=== PATIENT | female | born 1935 | race Caucasian/White ===

== ENCOUNTER → 2017-09-04 | Outpatient (CLI) | payer MEDICARE, BC ==
[~2017-09-04] MED LIST: ASPIRIN EC81 MG PO; CARVEDILOL 25MG25 MG PO; CENTRUM SILVER1 TA2 PO; FELODIPINE5 MG PO; GLIPIZIDE 5MG TA5 MG PO; GLYBURIDE AND M1 TA2 PO; LISINOPRIL40 MG PO; METOLAZONE 2.52.5 MG PO
[2017-09-04 09:45] LABS: URINE BILIRUBIN - DIPSTICK NEGATIVE (NEG); URINE BLOOD NEGATIVE (NEG)
[2017-09-04 09:55] LABS: URINE SQUAMOUS CELLS OCC #/hpf (0-5)
[2017-09-04 10:16] LABS: LYMPH # 0.7 K/mm3 (0.7-4.5); LYMPH % 10.6 % (10-50.0)
[2017-09-04 10:25] LABS: HEMOGLOBIN 10.3 g/dL (12.2-16.2)
--- NOTE | 2017-09-04 10:29 | RADIOLOGY REPORT PS360 ---
BONE DENSITOMETRY(HIP:LT SPINE HISTORY: POST MENOPAUSAL ORDERING PHYSICIAN: CLAU ROJO PATIENT AGE: 81 years COMPARISON: None FINDINGS: The BMD measured at the right femoral neck is 0.791 g/cm squared with a T score of -1.8. This is considered Osteopenic according to the World Health Organization criteria. Fracture risk is Moderate. Treatment is advised. IMPRESSION: Osteopenia. Moderate fracture risk. Recommend follow-up exam August 2019
[2017-09-04 10:50] LABS: BUN 43 mg/dL (7-18)
[2017-09-04 11:11] LABS: GFR (ESTIMATED) 23 ML/MIN (59-)
[2017-09-05 08:48] LABS: Vitamin D, 25-Hydroxy 67.8 ng/mL (30.0-100.0)
[2017-09-05 14:40] LABS: Calcium, Ionized 5.3 mg/dL (4.5-5.6)
== END ==
LOC: RAD 09:12
PROVIDERS: Internal Medicine Nephrology
DX: Z78.0 Asymptomatic menopausal state (principal); N25.0 Renal osteodystrophy; N18.3 Chronic kidney disease, stage 3 (moderate); R82.90 Unspecified abnormal findings in urine